=== PATIENT | female | born 2005 | race Hispanic/Latino ===

== ENCOUNTER 2025-07-20 12:16 | Emergency (ER) | payer SELFPAY ==
[~2025-07-20] VITALS: Ht 162.6 cm; Wt 49.9 kg
[2025-07-20 12:17] VITALS: BP 110/58; PULSE 65; RESP 18; TEMP 98.7
== END 2025-07-20 15:16 | disposition left against medical advice (07) ==
LOC: EDH 12:16
DX: R11.2 Nausea with vomiting, unspecified (principal); R10.9 Unspecified abdominal pain; Z53.21 Procedure and treatment not carried out due to patient leaving prior to being seen by health care provider

== ENCOUNTER 2025-07-22 16:26 | Emergency (ER) | payer SELFPAY ==
[~2025-07-22] VITALS: Ht 160 cm; Wt 49.9 kg
[2025-07-22 18:11] LABS: APPEARANCE,URINE CLEAR (CLEAR); GLUCOSE, URINE (UA) NEGATIVE (NEGATIVE); LEUKOCYTE ESTERASE ,URINE NEGATIVE Leu/uL (NEGATIVE); NITRATE,URINE NEGATIVE (NEGATIVE); OCCULT BLOOD,URINE LARGE (NEGATIVE)
[2025-07-22 18:19] LABS: ADD UA MICROSCOPIC YES; AMPHET/METH SCREEN,URINE NEGATIVE (NEGATIVE); BARBITURATE SCREEN, URINE NEGATIVE (NEGATIVE); CANNABINOID SCREEN,URINE POSITIVE (NEGATIVE); COCAINE SCREEN,URINE NEGATIVE (NEGATIVE)
[2025-07-22 18:21] LABS: SQUAMOUS EPITHELIAL CELL,UR FEW /HPF (0-2)
[2025-07-22] MEDS: MAG/ALUM/SIMETH 30 ML UDCUP PO ONE (18:23)
[2025-07-22] MEDS: LIDOCAINE HCL 2% VISCOUS 15 ML UDCUP PO ONE (18:23)
[2025-07-22] MEDS: 0.9%NACL 1000ML 1,000 ML IV STA (18:23)
[2025-07-22] MEDS: DICYCLOMINE HCL 10 MG/5 ML ML PO ONE (18:23)
[2025-07-22 18:26] LABS: IMMATURE GRANULOCYTE ABSOLUTE 0.04 K/uL (0-1); NUCLEATED RED BLOOD CELLS 0.0 % (0.0-0.19); PLATELET COUNT (AUTO) 257 K/uL (130-400); RED BLOOD CELL COUNT(AUTO) 5.17 MIL/uL (4.00-5.50); RED CELL DISTRIBUTION WIDTH 12.5 % (11.0-15.5); WHITE BLOOD COUNT (AUTO) 9.4 K/uL (4.8-10.8)
[2025-07-22 18:42] LABS: CREATININE 0.6 mg/dL (0.5-1.0); GLOMERULAR FILTR. RATE CALC 133.0 mL/min (>90); GLUCOSE,RANDOM 97.0 mg/dL (70-105); SODIUM SERUM 134.0 mmol/L (136-145); UREA NITROGEN, BLOOD 10.0 mg/dL (7-18)
[2025-07-22 18:53] LABS: ASPARTATE AMINOTRANSFERASE 18.0 U/L (10-37); HCG,QUANTITATIVE 0.0 mIU/mL (0-5); TOTAL PROTEIN, SERUM 8.0 g/dL (6.0-8.3)
[2025-07-22] MEDS ORDERED: FAMO-136 PO (20:00)
[2025-07-22] MEDS ORDERED: ONDA-243 PO (20:00)
--- NOTE | 2025-07-22 20:01 | ERN ---
ED Note History of Present Illness Stated Complaint: ABD PAIN, N/V X 2 WEEKS Chief Complaint: Abdominal Pain Time Seen by MD: 16:37 Time Seen by Midlevel: 16:40 Dictation: 19-year-old female with no past medical history coming in with complaints of epi gastric pain with nausea and vomiting worsening at night and worsening when she eats. Patient states she has has a about a week and a half. Patient states she stopped smoking THC about a month ago. Patient states she was seen last week at [facility] and was told that her vomiting was related to her THC use. Denies having any fever, dysuria. Stated her last menstruation is today. Allergies: Coded Allergies: No Known Allergies (Unverified Allergy, Unknown, 07/20/25) Past Medical History Past Medical History: No Pertinent History Surgical History: None LMP: Jul 21, 2025 Review of System Dictation Constitutional: Negative for fever,chills, and weight loss Eyes: Negative for injury, pain,redness, and discharge ENT: Negative for injury,pain or swelling Cardiovascular: Negative for chest pain, palpitations, and edema Respiratory: Negative for shortness of breath, cough, and wheezing, Abdomen/GI: Epigastric pain with nausea and vomiting Back: Negative for injury and pain : Negative for injury, bleeding and discharge MS/Extremity: Negative for injury and deformity Skin: Negative for rash, and discoloration Neuro: Negative for headache, weakness, numbness, tingling, and seizure Psych: Negative for suicide ideation, homicidal ideation, and hallucinations Review of Systems: was completed Initial Vital Sign VS Vital Signs Date Time Temp Pulse Resp B/P (MAP) Pulse Ox O2 Delivery O2 Flow Rate FiO2 07/22/25 16:27 99.0 77 18 112/69 96 Room Air 0 07/22/25 16:50 21 Physical Exam Dictation General: awake, alert, NAD Head/Face: Normocephalic, atraumatic Eyes: PERRL, EOMI, vision at baseline ENT: oral cavity clear, TMs clear, no signs of infection Neck: Trachea midline, supple, no nuchal rigidity Cardiovascular: RRR, normal S1/S2, No MRGs, no JVD Respiratory: CTAB, no respiratory distress, No rales or wheezes Abdomen: Soft, non-tender, non-distended, normal bowel sounds, no guarding or rebound. Skin: Warm, dry, normal turgor, no rash MS/Extremity: Pulses equal, no cyanosis, neurovascular intact, FROM Neuro: COAx4, GCS 15, strength 5/5, CN 2-12 intact, normal cerebellar exam, normal gait, Psych: Normal behavior, mood, and affect normal Results (Laboratory/Radiology) Laboratory/Radiology Laboratory Tests Test 07/22/25 16:35 07/22/25 18:21 Urine Color YELLOW (YELLOW) Urine Appearance CLEAR (CLEAR) Urine pH 6.5 (5.0-8.0) Urine Specific Richardson 1.033 (1.001-1.031) Urine Protein 50 mg/dL (NEGATIVE) H Urine Glucose (UA) NEGATIVE mg/dL (NEGATIVE) Urine Ketones 40 mg/dL (NEGATIVE) H Urine Occult Blood LARGE (NEGATIVE) H Urine Nitrate NEGATIVE (NEGATIVE) Urine Bilirubin NEGATIVE mg/dL (NEGATIVE) Urine Urobilinogen 3 mg/dL (0.2-1.0) H Urine Leukocyte Esterase NEGATIVE Jeremy/uL Urine RBC 26-50 /HPF (0-1) H Urine WBC 2-5 /HPF (0-1) H Urine Squamous Epithelial Cells FEW /HPF (0-2) Urine Bacteria RARE /HPF (None Seen) Urine Opiates Screen NEGATIVE (NEGATIVE) Urine Barbiturates Screen NEGATIVE (NEGATIVE) Urine Phencyclidine Screen NEGATIVE (NEGATIVE) Urine Amphetamines Screen NEGATIVE (NEGATIVE) Urine Benzodiazepines Screen NEGATIVE (NEGATIVE) Urine Cocaine Screen NEGATIVE (NEGATIVE) Urine Marijuana (THC) Screen POSITIVE (NEGATIVE) H White Blood Count 9.4 K/uL (4.8-10.8) Red Blood Count 5.17 MIL/uL (4.00-5.50) Hemoglobin 14.3 g/dL (12.0-16.0) Hematocrit 41.3 % (36-48) Mean Corpuscular Volume 79.9 fL (80-100) L Mean Corpuscular Hemoglobin 27.7 pg (27.0-33.0) Mean Corpuscular Hemoglobin Concent 34.6 g/dL (32.0-36.0) Red Cell Distribution Width 12.5 % (11.0-15.5) Platelet Count 257 K/uL (130-400) Mean Platelet Volume 10.2 fL (7.5-10.5) Immature Granulocyte % (Auto) 0.4 % (0-1) Neutrophils (%) (Auto) 61.7 % (40.0-77.0) Lymphocytes (%) (Auto) 28.8 % (21.0-51.0) Monocytes (%) (Auto) 8.5 % (3.0-13.0) Eosinophils (%) (Auto) 0.3 % (0.0-8.0) Basophils (%) (Auto) 0.3 % (0.0-5.0) Neutrophils # (Auto) 5.8 K/uL (1.8-7.7) Lymphocytes # (Auto) 2.7 K/uL (1.0-4.8) Monocytes # (Auto) 0.8 K/uL (0.1-1.0) Eosinophils # (Auto) 0.03 K/uL (0.00-0.70) Basophils # (Auto) 0.03 K/uL (0.00-0.20) Absolute Immature Granulocyte (auto 0.04 K/uL (0-1) Nucleated Red Blood Cells 0.0 % (0.0-0.19) Sodium Level 134 mmol/L (136-145) L Potassium Level 3.4 mmol/L (3.5-5.1) L Chloride Level 97 mmol/L (101-111) L Carbon Dioxide Level 29 mmol/L (21-32) Blood Urea Nitrogen 10 mg/dL (7-18) Creatinine 0.6 mg/dL (0.5-1.0) Glomerular Filtration Rate Calc 133 mL/min (>90) Random Glucose 97 mg/dL (70-105) Total Calcium 9.2 mg/dL (8.5-10.1) Total Bilirubin 1.1 mg/dL (0.2-1.0) H Direct Bilirubin 0.2 mg/dL (0.0-0.3) Aspartate Amino Transf (AST/SGOT) 18 U/L (10-37) Alanine Aminotransferase (ALT/SGPT) 26 U/L (12-78) Alkaline Phosphatase 92 U/L (50-136) Total Protein 8.0 g/dL (6.0-8.3) Albumin 4.5 g/dL (3.5-5.0) Lipase 32 U/L (16-77) Human Chorionic Gonadotropin, Quant 0 mIU/mL (0-5) Labs Reviewed?: Yes ED Course ED Course Orders Procedure Category Date Status Time Cbc With Differential LAB 07/22/25 Complete 17:30 Basic Metabolic Panel LAB 07/22/25 Complete 17:30 Hepatic Function Panel LAB 07/22/25 Complete 17:30 Lipase LAB 07/22/25 Complete 17:30 Urinalysis Profile LAB 07/22/25 Complete 17:30 Hcg,Quantitative LAB 07/22/25 Complete 17:30 Drug Screen Urine LAB 07/22/25 Complete 17:30 0.9%Nacl 1000ml (Ns PHA 07/22/25 In Process 1000ml) 17:30 Ondansetron 4mg Inj PHA 07/22/25 Complete (Zofran 4mg Inj) 17:30 Lidocaine Hcl 2% PHA 07/22/25 Complete Viscous (Lidocaine Hcl 17:30 Mag/Alum/Simeth 30ml PHA 07/22/25 Complete (Maalox Plus 30ml) 17:30 Dicyclomine Hcl PHA 07/22/25 Complete (Bentyl 10mg/5ml 17:30 Current Medications Medications (Trade) Dose Ordered Sig/Elías Route PRN Reason Start Time Stop Time Status Last Admin Dose Admin Al Hydroxide/Mg Hydroxide (MAALox PLUS 30ML) 30 ml ONCE ONCE PO 07/22/25 17:30 07/22/25 17:34 DC 07/22/25 18:23 Dicyclomine HCl (Bentyl 10mg/5ml Syrup) 10 mg ONCE ONCE PO 07/22/25 17:30 07/22/25 17:34 DC 07/22/25 18:23 Lidocaine HCl (Lidocaine HCl 2% Viscous) 10 ml ONCE ONCE PO 07/22/25 17:30 07/22/25 17:34 DC 07/22/25 18:23 Ondansetron HCl (zoFRAN 4MG INJ) 4 mg ONCE STAT IVP 07/22/25 17:30 07/22/25 17:34 DC 07/22/25 18:23 Sodium Chloride 1,000 ml @ 100 mls/hr Q10H STAT IV 07/22/25 17:30 07/23/25 03:29 07/22/25 18:23 Vital Signs Date Time Temp Pulse Resp B/P (MAP) Pulse Ox O2 Delivery O2 Flow Rate FiO2 07/22/25 16:50 99.0 77 18 112/69 96 Room Air* 0 21 07/22/25 16:27 99.0 77 18 112/69 96 Room Air 0 Medical Decision Making MDM MDM:19-year-old female with no past medical history coming in with complaints of epigastric pain with nausea and vomiting worsening at night and worsening when she eats. Patient states she has has a about a week and a half. Patient states she stopped smoking THC about a month ago. Patient states she was seen last week at [facility] and was told that her vomiting was related to her THC use. Denies having any fever, dysuria. Stated her last menstruation is today. Blood work unremarkable. Mild hyponatremia at 1:34 a.m.. NS given in the emergency room. UA still showing positive for THC. Discussed with the patient's if she was a heavy user this because show positive even weeks after. Educated patient she has worsening symptoms with a she eats her at night could be related to gastritis, GERD or PUD. Discussed with the patient and family member that she needs to follow up with an Gastroenterology for further evaluation. Discussed on diet and medications she can take to help with the symptoms. Differential diagnosis: Gastritis, gastroparesis, pancreatitis, gastroenteritis Rationale: Tests considered and ordered secondary to shared decision making include: Previous outside records reviewed: Old ER visits. Risk of complication and/or morbidity or mortality of patient management: None Medications-Per medication reconciliation Need for hospitalization: Patient does not meet criteria for hospitalization. Need for emergency major/minor surgery: No There are no social concerns with this patient. Prescription drug management Prescriptions will include symptomatic care Patient's prior external medical records from other ER visits were reviewed by me as indicated. Prior testing and results from previous visits were reviewed. Prior tests were taken into account with medical decision making and resource utilization, independent historian/historians were used to obtain complete medical history. I independently interpreted the test that were performed, results were reviewed by me and considered findings on radiology if ordered. Medical management and examination interpretation discussions were had by me with other qualified healthcare professionals as indicated for the patient's care. DX & DISP Disposition: Discharge Departure Impression: Primary Impression: Gastritis Condition: Stable Scripts Famotidine (Pepcid) 20 Mg Tablet 1 TAB PO BID for 15 Days, #60 TAB 0 Refills Prov: SADAF THOMAS ACUPRESSURIST 07/22/25 Ondansetron (Ondansetron Odt) 4 Mg Tab.rapdis 4 MG PO Q6HPRN PRN for nausea for 3 Days, #12 TAB 0 Refills Prov: SADAF THOMAS NP 07/22/25 Additional Instructions: Start off with light foods that are not ascitic, fried, or spicy. Like broth, [facility] shows, soups. Increase as tolerated. You can take [id number] Maalox, probiotics to help with your intestinal acrla. 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 Referrals: SELF,REFERRAL (PCP) MARA BRENNER MD Time of Disposition: 19:58 I have reviewed the case, and I agree with, Diagnosis and Plan SADAF THOMAS NP Jul 22, 2025 20:00
[2025-07-22 20:04] VITALS: BP 124/62; PULSE 72; RESP 18; TEMP 98.1; O2SAT 96
== END 2025-07-22 20:05 | disposition home or self-care (01) ==
LOC: EDH 16:26
DX: K29.70 Gastritis, unspecified, without bleeding (principal); R10.2 Pelvic and perineal pain
CPT/HCPCS: 99284; 96374; 80076; 80048; 80305; 84702; 83690; 85025; 36415; 81001; J7030; J2405